=== PATIENT | female | born 1985 | race Caucasian/White ===

== ENCOUNTER 2016-08-25 21:34 | Inpatient (IN) ==
[2016-08-25] MEDS ORDERED: BUTORPHANOL 2 MG/ML VIAL IV PRN (23:58)
[2016-08-26] MEDS: LACTATED RINGERS 1,000 ML IV SCH ×2 (00:20→09:07)
[2016-08-26 00:40] LABS: Basophils % 0.2 % (0.0-0.8); Eosinophils # 0.1 10*3/uL (0.0-0.87); Hematocrit 36.1 VOL% (35.7-47.0); Hemoglobin 11.7 GM/DL (12.0-16.0); Immature Granulocytes % 1.5 %; Immature Granulocytes Absolute 0.15 #; Lymphocytes # 2.2 10*3/uL (1.4-4.0); Lymphocytes % 22.6 % (21.3-54.2); Mean Corpuscular HGB Conc 32.4 GM/DL (32-36); Mean Corpuscular Hemoglobin 33 PG (27-34); Mean Corpuscular Volume 101.1 FL (87-102); Mean Platelet Volume 11.3 FL (9.6-12.0); Monocytes # 0.6 10*3/uL (0.11-0.8); Monocytes % 5.8 % (1.7-12.7); Neutrophils # 6.7 10*3/uL (1.4-7.4); Neutrophils % 68.9 % (38.7-73.9); Platelet Count 149 T/CUMM (130-400); Red Blood Count 3.57 MC/CUMM (3.8-5.5); Red Cell Distribution Width 13.7 % (9.3-17.3); White Blood Count 9.8 T/CUMM (4-12)
[2016-08-26 01:08] LABS: Albumin 2.8 G/DL (3.4-5.0); Bilirubin,Total 0.4 MG/DL (0.2-1.0); Calcium 8.6 MG/DL (8.5-10.1); Osmolality,Calculated 280.1 MOS/KG (273-304); Potassium 3.9 MMOL/L (3.5-5.1)
[2016-08-26] MEDS: OXYTOCIN/LR 20 UNIT/1,000 ML BAG IV SCH (06:00)
--- NOTE | 2016-08-26 06:04 | OB/GYN History & Physical ---
History of Present Illness Chief complaint: at 39 weeks elective induction History of present illness: Ms. Saleh is a 30 year old female 2 para 1 at 39 weeks estimated gestational age admitted for elective induction. ultrasound estimated weight is 7 lbs. 11 oz. with elevated LUCINA of 20. Presentation is confirmed vertex. The risks benefits alternatives were explained to patient detail and informed was obtained for the above Home Medications Medication Instructions Recorded Confirmed Type No Known Home Medications [No 08/26/16 08/26/16 History Known Home Medications] Allergies Allergy/AdvReac Type Severity Reaction Status Date / Time ciprofloxacin [From Cipro] Allergy Severe throat Verified 09/05/15 06:19 atkins and skin atkins acetaminophen [From Tylenol] Allergy Mild chest Verified 09/05/15 06:19 tightness and throat atkins, chest turns red naproxen [From Aleve] Allergy Mild chest Verified 09/05/15 06:19 tightness and throat atkins, chest truns red 12 point system: reviewed and no additional remarkable complaints except as stated Medical,Surgical,& Family Hx - Medical History Cardio: History of: Cardiac Dysrhythmia Psychological: History of: Anxiety Disorders Neurology: No history of: Seizures HEENT: History of: Ear Problem (left ear) Respiratory: History of: Bronchitis (2014) Gastrointestinal: History of: GI Problems (constipation) Hematology: History of: Anemia Reproductive: History of: Ectopic (possible), Ovarian Cysts Other: History of: Anesthesia Reactions (nausea) - Surgical History HEENT Surgeries: Surgical HX of: Tonsilectomy & Adenoidectomy (tonsils 2014) Abdominal Surgeries: Surgical HX of: Colonoscopy Reproductive Surgeries: Surgical HX of;: Dilation and Curettage, Gynecologic Surgery (leep and fibroid removal) Patient denies;: Section - Family History Family History: Reports;: Family Cancer (mgf), Family Hypertension (pt's mother and father) Denies;: Family Anesthesia Reaction, Family Diabetes, Family Heart Disease, Family Hematology, Family Psychiatric Problems, Family Stroke, Additional Family History - Social History Smoking Status: Never smoker Frequency of Alcohol Use: None 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 - Constitutional Vitals: Vital Signs Temp Pulse Resp BP 08/25/16 21:59 98.2 F 101 H 20 121/79 General appearance: normal weight, no acute distress - Head Head exam: Present: normal inspection, normocephalic, atraumatic - Respiratory Respiratory exam: Present: clear to auscultation bilaterally - Breast Breasts: as per HPI Menstruation: as per HPI - Cardiovascular Cardiovascular exam: Present: regular rate and rhythm - GI/Abdominal GI/Abdominal exam: Present: normal bowel sounds - Extremities Exam Extremities exam: Present: normal inspection, normal capillary refill - Back Exam Back exam: Present: normal inspection - Neurological Exam Neurological exam: Present: alert, oriented X3 - Psychiatric Psychiatric exam: Present: normal affect, normal mood - Skin Skin exam: Present: normal color, warm Assessment and Plan (1) with 39 completed weeks gestation Status: Acute Current Visit: Yes Results - Labs CBC & BMP: 08/26/16 00:24 08/26/16 00:24
[2016-08-26] MEDS ORDERED: OXYTOCIN/LR 20 UNIT/1,000 ML BAG IV ONE ×2 (06:21→15:58)
[2016-08-26] MEDS ORDERED: ePHEDrine 50 MG/ML AMP IV PRN (07:59)
[2016-08-26] MEDS ORDERED: hydrOXYzine HCL 25 MG/1 ML VIAL IM PRN (07:59)
[2016-08-26] MEDS ORDERED: FAMOTIDINE 20 MG/2 ML VIAL IV ONE (07:59)
[2016-08-26] MEDS ORDERED: CITRIC ACID/SODIUM CITRATE 30 ML UDCUP PO ONE (07:59)
[2016-08-26] MEDS ORDERED: PROMETHAZINE 25 MG/1 ML VIAL IM ONE (07:59)
[2016-08-26] MEDS ORDERED: diphenhydrAMINE 50 MG/1 ML VIAL IV PRN ×2 (07:59)
[2016-08-26] MEDS ORDERED: LACTATED RINGERS 1,000 ML IV ONE (07:59)
[2016-08-26] MEDS: ONDANSETRON 4 MG/2 ML VIAL IV PRN ×2 (10:44→17:10)
[2016-08-26 12:51] LABS: Apearance,Urine CLEAR (Clear); Bilirubin,Urine Negative (Negative); Blood, Urine Negative (Negative); Glucose,Urine (UA) Negative (Negative); Ketones,Urine Negative (Negative); Mucus,Urine Occasional /LPF (Occasional); Nitrite,Urine Negative (Negative); Protein,Urine Negative; RBC,Urine 2 /HPF (0-4); Squamous Epithelial Cell,Urine Occasional /HPF (0-10); Urine Color Straw (Yellow); Urine Specific Gravity 1.008 (1.001-1.035); Urine Urobilinogen < 2.0 EU/DL (0.2-1.0); WBC,Urine <1 /HPF (0-6)
[2016-08-26] MEDS ORDERED: ONDANSETRON 4 MG/2 ML VIAL ONE (14:55)
[2016-08-26] MEDS ORDERED: PROPOFOL 200 MG/20 ML VIAL IV ONE (14:55)
[2016-08-26] MEDS ORDERED: PHENYLEPHRINE 1 MG/10 ML SYRINGE IV ONE (14:55)
[2016-08-26] MEDS ORDERED: BENZOCAINE 20%/MENTHOL 0.5% SPRAY 56 GM CAN TOP PRN (15:58)
[2016-08-26] MEDS ORDERED: WITCH HAZEL PADS 100/JAR TOP PRN (15:58)
[2016-08-26] MEDS ORDERED: RHO(D) IMMUNE GLOBULIN 300 MCG SYRINGE IM ONE (15:58)
[2016-08-26] MEDS ORDERED: oxyCODONE/ACETAMINOPHEN 5-325 MG TABLET PO PRN ×2 (15:58)
[2016-08-26] MEDS ORDERED: BISACODYL 10 MG SUPP RECTAL PRN (15:58)
[2016-08-26] MEDS ORDERED: DIPH/TET/ACEL PERT BOOSTER VACCINE 0.5 ML VIAL IM ONE (15:58)
[2016-08-26] MEDS ORDERED: ONDANSETRON 4 MG/2 ML VIAL IV PRN (15:58)
[2016-08-26] MEDS ORDERED: MEASLES/MUMPS/RUBELLA VACCINE 0.5 ML VIAL SUBCUT ONE (15:58)
[2016-08-26] MEDS ORDERED: ACETAMINOPHEN 325 MG TABLET PO PRN (15:58)
[2016-08-26] MEDS ORDERED: LANOLIN 50% CREAM 0.3 OZ TUBE TOP PRN (15:58)
[2016-08-26] MEDS ORDERED: HYDROCORTISONE 2.5% RECTAL CREAM 30 GM TUBE TOP PRN (15:58)
--- NOTE | 2016-08-26 15:58 | Operative Note ---
Date of procedure: 08/26/16 Pre-op diagnosis: Rest dilatation secondary arrest of active phase Post-op diagnosis: same Procedure: This is Dr. Arevalo dictating operative note: Preoperative diagnosis intrauterine intrauterine at [39] weeks 2. Arrested dilatation 3. Secondary arrest of active phase 4. Recurrent atypical variable decelerations despite amnioinfusion Postoperative diagnosis same Procedure primary low transverse section Surgeon Dr. Arevalo Anesthesia epidural Findings liveborn female infant 7 pounds 9 ounces Complications none Estimated blood loss 500 mL Disposition patient to recovery room in [stable] condition. Infant to nursery in [stable] condition Operative description: After the risks benefits and alternatives were explained to the patient in detail and informed consent was obtained, the patient was taken to the operating room where she was placed in the supine position. After achieving appropriate anesthesia the abdomen was prepped and draped in the usual sterile fashion. A Carney catheter was placed without difficulty. After the appropriate time out and after adequate anesthesia was ascertained a Pfannenstiel skin incision was made and carried down through the subcutaneous tissue down to the fascia. The fascia was nicked in the midportion and undermined and incised both laterally and cephalad using sharp dissection with the curved Blanco scissors. 2 [place] clamps were used to elevate the rectus fascia superiorly which was bluntly and sharply dissected away from the rectus muscle below. This was repeated inferiorly. The rectus muscles were then bluntly in the midline the peritoneum identified grasped with 2 curved hemostats and entered sharply using the curved Metzenbaum scissors. A bladder blade was then placed in the pelvis and a bladder flap was created off the lower uterine segment using sharp dissection with the Metzenbaum scissors. The bladder blade was then repositioned. A transverse incision was made across the lower uterine segment down to the amnion. Entry into the amnion revealed [ clear] amniotic fluid. The uterine incision was then extended laterally using bilateral finger fractionation. Upon palpation the presenting part was [vertex ] which was gently elevated out of the pelvis and delivered onto the abdominal wall using appropriate fundal pressure. The infant's nose and oropharynx were bulb and DeLee suctioned and the infant had spontaneous cry delivery. The cord was doubly clamped and cut and the was handed over to the team for care. Cord blood was obtained. The placenta was delivered manually and IV Pitocin antibiotics and Zofran were begun. The uterus was then exteriorized and placed in a wet laparotomy sponge. 2 fingers wrapped around a wet laparotomy sponge were used to remove all residual membranes from the uterine cavity. The uterus was then closed in 2 layers. The first layer of myometrium was closed with #1 Monocryl suture in an inner locking fashion beginning at both angles and overlapping slightly in the midline. The second layer of myometrium was closed with #1 Monocryl suture in a running imbricating stitch beginning at the right angle and continuing the length of the uterine incision. Hemostasis was noted to be excellent. The posterior cul-de-sac was then irrigated and cleansed with a wet laparotomy sponge and the uterus was placed back in the abdominal cavity. Both pericolic gutters were then irrigated and cleansed with a wet lap sponge. The uterine incision was then re-irrigated and again noted to be hemostatic. All counts were noted to be correct. The subcutaneous tissue was then closed using 3-0 Vicryl suture in a running fashion. The subfascial area was made hemostatic using electrocautery and closed with #1 PDS suture in a running fashion beginning at both angles and overlapping slightly in the midline. The subcutaneous tissue was irrigated and made hemostatic using electrocautery and closed with 2-0 Vicryl suture in a running fashion and the skin was closed with wide skin fallon and a sterile pressure bandage was applied to the wound. All sponge needle and instrument counts were correct -3 at the end of the procedure. The patient's urine was [ clear] both at the beginning in the end of the procedure. The patient was taken to the recovery room in stable condition Anesthesia: epidural Surgeon / Physician: Pardeep Arevalo Estimated blood loss: other (500) Specimens: none sent Disposition: floor Results - Labs CBC & BMP: 08/26/16 00:24 08/26/16 00:24 Discharge Plan - Discharge Medications No Action No Known Home Medications [No Known Home Medications] - Follow Up or Referral - Forms/Instructions
[2016-08-26] MEDS ORDERED: fentaNYL 100 MCG/2 ML VIAL ONE (16:14)
[2016-08-26] MEDS ORDERED: MORPHINE 10 MG/10 ML VIAL ONE (16:14)
[2016-08-26] MEDS: DOCUSATE SODIUM 100 MG CAPSULE PO SCH (21:25)
--- NOTE | 2016-08-26 23:08 | Anesthesia Post-Op ---
Anesthesia Post OP - Post Ansesthetic Evaluation Patient seen in post op: Yes Resp: within normal limits CV: within normal limits Mental: within normal limits Temp: within normal limits [id number]: within normal limits Nausea and Vomiting: within normal limits Pain: within normal limits
[2016-08-27] MEDS: ONDANSETRON 4 MG/2 ML VIAL IV PRN (00:25)
[2016-08-27 05:31] LABS: Basophils % 0.2 % (0.0-0.8); Eosinophils % 0.1 % (0.00-10.9); Hematocrit 28.8 VOL% (35.7-47.0); Hemoglobin 9.6 GM/DL (12.0-16.0); Immature Granulocytes % 0.9 %; Immature Granulocytes Absolute 0.18 #; Lymphocytes # 1.6 10*3/uL (1.4-4.0); Lymphocytes % 8.1 % (21.3-54.2); Mean Corpuscular HGB Conc 33.3 GM/DL (32-36); Mean Corpuscular Hemoglobin 33 PG (27-34); Mean Corpuscular Volume 100.3 FL (87-102); Mean Platelet Volume 11.8 FL (9.6-12.0); Monocytes # 0.8 10*3/uL (0.11-0.8); Monocytes % 4.2 % (1.7-12.7); Neutrophils # 16.9 10*3/uL (1.4-7.4); Neutrophils % 86.5 % (38.7-73.9); Platelet Count 135 T/CUMM (130-400); Red Blood Count 2.87 MC/CUMM (3.8-5.5); Red Cell Distribution Width 13.6 % (9.3-17.3); White Blood Count 19.6 T/CUMM (4-12)
--- NOTE | 2016-08-27 05:41 | OB/GYN Progress Note ---
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 She is tolerating her diet. She is alert and oriented -3 Cardiovascular regular rate and rhythm Lungs clear to auscultation Abdomen soft with appropriate tenderness and bowel sounds are present and her incision is dry no bleeding Is good refill HEENT shows pink conjunctiva assessment 1 day of surgery doing well Plan continue present management with expected DC in a.m. Exam SILK CONDITIONER - Constitutional Vitals: Vital Signs Temp Pulse Resp BP Pulse Ox 08/27/16 04:00 98.7 F 101 H 18 97/62 95 08/27/16 00:00 98.1 F 90 18 108/67 95 08/26/16 21:20 103 H 19 103/60 100 08/26/16 20:20 102 H 20 107/63 100 08/26/16 19:20 100 H 19 110/62 100 08/26/16 18:48 90 19 96/63 100 08/26/16 18:20 98.4 F 99 H 18 117/72 100 08/26/16 12:00 97.0 F L 96 H 20 109/68 08/26/16 08:00 97.1 F L 85 18 112/69 Results - Labs CBC & BMP: 08/27/16 04:46 08/26/16 00:24
[2016-08-27] MEDS: DOCUSATE SODIUM 100 MG CAPSULE PO SCH ×2 (09:30→21:01)
[2016-08-27] MEDS: IBUPROFEN 800 MG TABLET PO PRN ×3 (09:30→22:08)
[2016-08-27] MEDS: fentaNYL 2 MCG/ROPIV 0.2% EPID 150 ML EPIDURAL SCH ×2 (10:35→14:39)
[2016-08-27] MEDS: LACTATED RINGERS 1,000 ML IV SCH (10:35)
[2016-08-27] MEDS: OXYTOCIN/LR 20 UNIT/1,000 ML BAG IV SCH (10:36)
[2016-08-27] MEDS: oxyCODONE IR 5 MG TABLET PO PRN ×2 (14:38→22:08)
[2016-08-27] MEDS ORDERED: SIMETHICONE CHEW 80 MG TABLET PO PRN (22:06)
[2016-08-28] MEDS: IBUPROFEN 800 MG TABLET PO PRN (03:45)
[2016-08-28] MEDS: oxyCODONE IR 5 MG TABLET PO PRN ×2 (03:45→07:35)
--- NOTE | 2016-08-28 06:48 | Discharge Summary ---
Hospital Course - Hospital Course Hospital Course: Postoperatively the patient did well. She had quick return of bowel and bladder function. She remained afebrile and normotensive throughout her hospitalization. She is constantly discharged on post op day #2 on a regular diet her discharge medications include Percocet for pain. Diagnosis - Discharge Diagnosis (1) with 39 completed weeks gestation Status: Acute Specialty Discharge - Follow Up or Referrals Follow up with: Pardeep Arevalo MD [Physician] - 09/04/16 2:30 pm Discharge Plan - Discharge Data Disposition: Disch To Home/Self Care Condition at Discharge: Stable Discharge Diet: regular diet Activity: increase activity as tolerated, no lifting, other (Pelvic rest) Hygiene: may shower Weight Bearing at Discharge: full weight bearing Driving: not until seen by doctor Contact your physician if you experience:: fever over 101, Difficulty voiding, Redness or swelling, Nausea/Vomiting, Shortness of breath, Bleeding, pain uncontrolled by pain medications - Discharge Medications New oxyCODONE IR [Roxicodone] 5 mg PO Q4H PRN #20 tablet PRN Reason: Pain Severe (8-10) - Follow Up or Referral Follow Up: Pardeep Arevalo MD [Physician] - 1 Week - Forms/Instructions Exam - Constitutional Vitals: Period Temp Pulse Resp BP Sys/Yusuf Pulse Ox Last 24 Hr 97.4 F-98.8 F 86-102 18-20 97-118/60-70 98-99 DS: Provider Date of admission: 08/25/16 21:34 Primary care physician: . No PCP Attending physician on admission: Anival Bradford Consults: 08/26/16 00:13 Consult to Anesthesiology [CONS] Routine Consulting Provider: Reason for Anesthesiology: Epidural Consult Comment: Epidural for pain managment 08/26/16 15:58 Consult to Slasher Machine Operator [CONS] Routine Consult Slasher Machine Operator: Breast Feeding Discharging clinician: Anival Bradford Expected date of discharge: 08/28/16
[2016-08-28 07:13] VITALS: BP 100/64
[2016-08-28] MEDS: DOCUSATE SODIUM 100 MG CAPSULE PO SCH (09:02)
== END 2016-08-28 12:05 | disposition home or self-care (01) | DRG 766 ==
LOC: EDSTATUS 21:34 → N.LD 21:34 → N.LDOUT 21:34 → N.LD 21:40 → N.OB 08-26 18:22
PROVIDERS: ADMIT Specialist; ATTEND Specialist
PROC: LDCSECT (ICD-10-PCS; 2016-08-26 15:00)